=== PATIENT | male | born 1960 | race African-American/Black ===

== ENCOUNTER → 2020-04-25 | Outpatient (CLI) | payer MEDICARE, OTHER ==
[2020-04-25 08:57] LABS: HCT 38.7 % (39.0-53.0); HGB 12.3 gm/dL (13.0-17.5); MCH 28.9 pg (25.0-35.0); MCHC 31.7 g/dL (31.0-37.0); MCV 90.9 fL (80.0-100.0); Mean Platelet Volume 8.2; Platelet Count 191 k/uL (150-450); RBC 4.26 m/uL (4.30-5.90); RDW 13.8 % (11.5-15.5); WBC 6.2 k/uL (3.8-10.6)
[2020-04-25 17:59] LABS: African American GFR (CKD) 94.4 (60.0-200.0); Albumin 4.7 g/dL (3.80-4.90); Albumin/Globulin Ratio 1.68 (1.60-3.17); Anion Gap 10.6 mmol/L (4.00-12.00); Calcium 9.7 mg/dL (8.7-10.3); Carbon Dioxide 22.4 mmol/L (21.6-31.8); Chol/HDL Ratio 3.02; Globulin 2.8 g/dL (1.6-3.3); Non-African American GFR(CKD) 81.4 (60.0-200.0); Potassium 3.6 mmol/L (3.5-5.5); Total Bilirubin 0.5 mg/dL (0.3-1.2); Total Protein 7.5 g/dL (6.2-8.2)
[2020-04-25 18:29] LABS: Gliadin AB IgA, Deaminated NEGATIVE (NEGATIVE); Gliadin AB IgG, Deaminated NEGATIVE (NEGATIVE)
[2020-04-25 21:29] LABS: Hemoglobin A1C 5.5 % (4.0-6.0)
== END | disposition home or self-care (01) ==
LOC: LABWHC1 08:24
DX: Z00.00 Encounter for general adult medical examination without abnormal findings (principal); K52.9 Noninfective gastroenteritis and colitis, unspecified; L30.9 Dermatitis, unspecified; R20.2 Paresthesia of skin
CPT/HCPCS: 36415; 80053; 80061; 82607; 83036; 83516; 83921; 84443; 85027

== ENCOUNTER 2020-06-13 12:04 | Observation (INO) | payer MEDICARE ==
[2020-06-13] MEDS ORDERED: LIDOCAINE 1% INJ 10MG/ML (20 ML MDV) SQ ONE (12:36)
[2020-06-13] MEDS ORDERED: MORPHINE SULFATE 4 MG/ML SYRINGE IVP STA (12:37)
[2020-06-13 12:51] LABS: Basophils % (A) 0 %; Eosinophils # (A) 0.3 k/uL (0-0.7); Eosinophils % (A) 4 %; HCT 37.9 % (39.0-53.0); HGB 12.6 gm/dL (13.0-17.5); Lymphocytes # (A) 1.8 k/uL (1.0-4.8); Lymphocytes % (A) 24 %; MCH 30.8 pg (25.0-35.0); MCHC 33.2 g/dL (31.0-37.0); MCV 92.6 fL (80.0-100.0); Monocytes # (A) 0.4 k/uL (0-1.0); Monocytes % (A) 5 %; Neutrophils # (A) 4.9 k/uL (1.3-7.7); Neutrophils % (A) 65 %; Platelet Count 183 k/uL (150-450); RBC 4.09 m/uL (4.30-5.90); RDW 13.2 % (11.5-15.5); WBC 7.5 k/uL (3.8-10.6)
--- NOTE | 2020-06-13 13:00 | XR ---
EXAMINATION TYPE: XR knee complete LT DATE OF EXAM: 06/13/2020 COMPARISON: None HISTORY: Pain TECHNIQUE: Three-view left knee FINDINGS: No significant joint effusion is evident. Soft tissues are normal. Joint spaces are preserv ed. No acute fractures or dislocations are evident. Posterior superior patellar spur is noted. IMPRESSION: 1. No acute osseous abnormality. 2. Follow-up exams can be performed 7-10 days from acute trauma for continued pain.
[2020-06-13 13:03] LABS: ALT 83 U/L (4-49); AST 106 U/L (17-59); African American GFR (CKD) >90 (>60 ml/min/1.73 sqM); Albumin 4.5 g/dL (3.5-5.0); Alkaline Phosphatase 73 U/L (38-126); Anion Gap 8 mmol/L; Blood Urea Nitrogen 18 mg/dL (9-20); C Reactive Protein 11.9 mg/L (<10.0); Calcium 9.6 mg/dL (8.4-10.2); Carbon Dioxide 27 mmol/L (22-30); Chloride 102 mmol/L (98-107); Glucose 100 mg/dL (74-99); Non-African American GFR(CKD) 81 (>60 ml/min/1.73 sqM); Potassium 4.6 mmol/L (3.5-5.1); Sodium 137 mmol/L (137-145); Total Bilirubin 0.6 mg/dL (0.2-1.3); Total Protein 8.3 g/dL (6.3-8.2); Uric Acid 7.8 mg/dL (3.5-8.5)
--- NOTE | 2020-06-13 13:07 | ED ---
Extremity Problem HPI - General Chief complaint: Extremity Problem,Nontraumatic Stated complaint: Left leg pain Time Seen by Provider: 06/13/20 12:10 Source: patient Mode of arrival: wheelchair Limitations: no limitations - History of Present Illness Initial comments: 60-year-old male presents to the emergency department with reported left knee pain. Patient denies any recent trauma. States the pain has been going on for the past 3 days. It has become so painful that he is unable to bear weight. He has had some swelling to the knee as well as warmth. Denies any fevers or chills. No history of hardware from previous surgeries to the joint. No calf pain or swelling. DVT or PE. Denies any chest pain or shortness of breath. Patient does not have an orthopedic surgeon. No other alleviating, precipitating or modifying factors - Related Data Home Medications Medication Instructions Recorded Confirmed Carvedilol [Coreg] 25 mg PO BID 06/13/20 06/13/20 FLUoxetine HCL [PROzac] 20 mg PO DAILY 06/13/20 06/13/20 Lisinopril-Hctz 20-25 mg 1 tab PO DAILY 06/13/20 06/13/20 [Zestoretic 20-25] amLODIPine [Norvasc] 10 mg PO DAILY 06/13/20 06/13/20 Previous Rx's Medication Instructions Recorded Indomethacin [Indocin ER] 75 mg PO DAILY #14 cap 06/15/20 Allergies Allergy/AdvReac Type Severity Reaction Status Date / Time No Known Allergies Allergy Verified 06/13/20 13:27 Review of Systems ROS Statement: Those systems with pertinent positive or pertinent negative responses have been documented in the HPI. ROS Other: All systems not noted in ROS Statement are negative. Past Medical History Past Medical History: Hypertension History of Any Multi-Drug Resistant Organisms: None Reported Past Surgical History: Orthopedic Surgery Past Psychological History: No Psychological Hx Reported Smoking Status: Current some day smoker Past Alcohol Use History: Occasional Past Drug Use History: None Reported General Exam Limitations: no limitations General appearance: alert, in no apparent distress Respiratory exam: Present: normal lung sounds bilaterally. Absent: respiratory distress, wheezes, rales, rhonchi, stridor Cardiovascular Exam: Present: regular rate, normal rhythm, normal heart sounds. Absent: systolic murmur, diastolic murmur, rubs, gallop, clicks GI/Abdominal exam: Present: soft, normal bowel sounds. Absent: distended, tenderness, guarding, rebound, rigid Extremities exam: Present: joint swelling (left knee which is also warm to the touch. Mild overlying erythema. Patient unable to perform any active ROM or weight bearing due to significant pain. 2+ DP and PT pulses) Neurological exam: Present: alert, oriented X3, CN II-XII intact Course Vital Signs 06/13/20 06/13/20 06/13/20 12:09 16:25 16:30 Temperature 97.9 F Pulse Rate 72 74 71 Pulse Rate [ Pulse Oximetery ] Respiratory 18 20 18 Rate Blood Pressure 119/82 147/94 148/91 Blood Pressure [Right Arm] O2 Sat by Pulse 99 96 96 Oximetry 06/13/20 06/13/20 06/13/20 18:30 19:03 19:09 Temperature 98.3 F 98.2 F Pulse Rate 75 Pulse Rate [ 65 Pulse Oximetery ] Respiratory 20 17 Rate Blood Pressure 134/84 Blood Pressure 133/79 [Right Arm] O2 Sat by Pulse 99 98 Oximetry Medical Decision Making - Medical Decision Making Upon arrival the patient is placed in room 20. A thorough history and physical exam was performed. Because the patient's left knee joint was warm to the touch and did recommend laboratory studies and an x-ray. Laboratory studies do demonstrate an elevated C-reactive protein of 1.9. ESR is 62. Knee x-ray demonstrates no acute osseous abnormality. I did attempt to perform arthroc entesis of the patient's knee however I am unable to obtain any fluid. I did discuss results to Dr. Wetzel. He does agree to admit the patient. I will place him on Unasyn. Patient is also placed in a knee immobilizer. Treatment plan was discussed with the patient he does agree. Patient remained in stable condition awaiting a bed on the floor - Lab Data Result diagrams: 06/13/20 12:36 06/13/20 12:36 Lab Results 06/13/20 06/13/20 Range/Units 12:36 12:36 WBC 7.5 (3.8-10.6) k/uL RBC 4.09 L (4.30-5.90) m/uL Hgb 12.6 L (13.0-17.5) gm/dL Hct 37.9 L (39.0-53.0) % MCV 92.6 (80.0-100.0) fL MCH 30.8 (25.0-35.0) pg MCHC 33.2 (31.0-37.0) g/dL RDW 13.2 (11.5-15.5) % Plt Count 183 (150-450) k/uL Neutrophils % 65 % Lymphocytes % 24 % Monocytes % 5 % Eosinophils % 4 % Basophils % 0 % Neutrophils # 4.9 (1.3-7.7) k/uL Lymphocytes # 1.8 (1.0-4.8) k/uL Monocytes # 0.4 (0-1.0) k/uL Eosinophils # 0.3 (0-0.7) k/uL Basophils # 0.0 (0-0.2) k/uL ESR 62 H (0-15) mm/hr Sodium 137 (137-145) mmol/L Potassium 4.6 (3.5-5.1) mmol/L Chloride 102 (98-107) mmol/L Carbon Dioxide 27 (22-30) mmol/L Anion Gap 8 mmol/L BUN 18 (9-20) mg/dL Creatinine 1.00 (0.66-1.25) mg/dL Est GFR (CKD-EPI)AfAm >90 (>60 ml/min/1.73 sqM) Est GFR (CKD-EPI)NonAf 81 (>60 ml/min/1.73 sqM) Glucose 100 H (74-99) mg/dL Uric Acid 7.8 (3.5-8.5) mg/dL Calcium 9.6 (8.4-10.2) mg/dL Total Bilirubin 0.6 (0.2-1.3) mg/dL AST 106 H (17-59) U/L ALT 83 H (4-49) U/L Alkaline Phosphatase 73 (38-126) U/L C-Reactive Protein 11.9 H (<10.0) mg/L Total Protein 8.3 H (6.3-8.2) g/dL Albumin 4.5 (3.5-5.0) g/dL Disposition Clinical Impression: Left knee pain Disposition: ADMITTED IP TO THIS [facility] Condition: Good Is patient prescribed a controlled substance at d/c from ED?: No Decision to Admit Reason: Admit from EC Decision Date: 06/13/20 Decision Time: 17:47
[2020-06-13 13:46] LABS: Erythrocyte Sedimentation Rate 62 mm/hr (0-15)
[2020-06-13] MEDS ORDERED: AMPICILLIN-SULBACTAM 3 GM in SODIUM CHLORIDE 0.9% 100 ML IVPB STA (17:47)
[2020-06-13] MEDS ORDERED: NALOXONE 0.4 MG/ML 1 ML VIAL IV PRN (17:48)
[2020-06-13] MEDS: SODIUM CHLORIDE 0.9% 1,000 ML IV SCH (18:30)
[2020-06-13] MEDS: HYDROcodone/APAP 5-325MG 1 EACH TAB PO PRN ×2 (18:54→22:49)
[2020-06-13] MEDS: carvediloL 12.5 MG TAB PO SCH (20:36)
[2020-06-14] MEDS: HYDROcodone/APAP 5-325MG 1 EACH TAB PO PRN ×4 (02:47→19:16)
[2020-06-14] MEDS: carvediloL 12.5 MG TAB PO SCH ×2 (07:37→15:55)
[2020-06-14] MEDS: amLODIPine 10 MG TAB PO SCH (07:38)
[2020-06-14] MEDS: LISINOPRIL-HCTZ 20-25 MG 1 EACH TAB PO SCH (07:38)
[2020-06-14] MEDS: FLUoxetine HCL 20 MG CAP PO SCH (07:38)
[2020-06-14] MEDS ORDERED: LIDOCAINE 2% INJ 20 MG/ML (20 ML MDV) MISCELLANE STA (09:20)
--- NOTE | 2020-06-14 10:10 | P.HPOR ---
History of Present Illness H&P Date: 06/14/20 Chief Complaint: Left knee pain This is a 60-year-old male who presents to the emergency department with left knee pain for the past several days. He denies any injury or trauma. He states that he began having severe pain and swelling to the knee which was unrelieved with Tylenol. The patient denies history of sickle cell anemia. He states that he does have a strong family history of gout in his father and brother. He has not had problems with his left knee in the past. Past Medical History Past Medical History: Hypertension History of Any Multi-Drug Resistant Organisms: None Reported Past Surgical History: Orthopedic Surgery Past Psychological History: No Psychological Hx Reported Smoking Status: Current some day smoker Past Alcohol Use History: Occasional Past Drug Use History: None Reported Medications and Allergies Home Medications Medication Instructions Recorded Confirmed Type Carvedilol [Coreg] 25 mg PO BID 06/13/20 06/13/20 History FLUoxetine HCL [PROzac] 20 mg PO DAILY 06/13/20 06/13/20 History Lisinopril-Hctz 20-25 mg 1 tab PO DAILY 06/13/20 06/13/20 History [Zestoretic 20-25] amLODIPine [Norvasc] 10 mg PO DAILY 06/13/20 06/13/20 History Allergies Allergy/AdvReac Type Severity Reaction Status Date / Time No Known Allergies Allergy Verified 06/13/20 13:27 Physical Examination This is a pleasant 60-year-old male in no acute distress. He is alert and oriented 3. Exam of the lower extremities reveals trace knee effusion to the left knee. There is no erythema or ecchymosis. There is no appreciable increased warmth to the knee today. He is able to straight leg raise without difficulty. He has significant pain with attempted to flex the knee. I am unable to perform Kayla's test due to his inability to flex the knee. No obvious instability noted to the knee with Lockman and drawer tests. No obvious laxity to the MCL or LCL. Neurovascular status to the lower extremity is intact. Results X-rays of the left knee reveal no obvious bony abnormality. Minimal degenerative changes noted. No acute fracture noted. - Labs Labs: Abnormal Lab Results - Last 24 Hours (Table) 06/13/20 06/13/20 Range/Units 12:36 12:36 RBC 4.09 L (4.30-5.90) m/uL Hgb 12.6 L (13.0-17.5) gm/dL Hct 37.9 L (39.0-53.0) % ESR 62 H (0-15) mm/hr Glucose 100 H (74-99) mg/dL AST 106 H (17-59) U/L ALT 83 H (4-49) U/L C-Reactive Protein 11.9 H (<10.0) mg/L Total Protein 8.3 H (6.3-8.2) g/dL H & H 06/13/20 Range/Units 12:36 Hgb 12.6 L (13.0-17.5) gm/dL Hct 37.9 L (39.0-53.0) % Result Diagrams: 06/13/20 12:36 06/13/20 12:36 Assessment and Plan (1) Left knee pain Current Visit: Yes Status: Acute Code(s): M25.562 - PAIN IN LEFT KNEE SNOMED Code(s): 14433551 Plan: The clinical and x-ray findings are discussed with the patient. I did attempt to aspirate the knee obtaining only 1 mL of slightly blood-tinged joint fluid. The fluid is sent for culture and sensitivity. With his strong family history of gout, I discussed the patient that he may be having a gout flare. We will start him on Indocin today to see if it improves his pain. He may continue with a knee immobilizer for comfort.
[2020-06-14] MEDS: INDOMETHACIN 25 MG CAP PO SCH (11:03)
--- NOTE | 2020-06-14 15:25 | MR ---
EXAMINATION TYPE: MR knee LT wo con DATE OF EXAM: 06/14/2020 COMPARISON: Left knee x-ray from yesterday HISTORY: Knee pain, Left Anterior, Swelling. No Known Trauma TECHNIQUE: Multiplanar, multisequence imaging of the left knee is performed without IV contrast. FINDINGS: MEDIAL MENISCUS: Oblique signal posterior horn extends to inferior articular surface sagittal image 2 6. LATERAL MENISCUS: Anterior and posterior horns intact. CRUCIATE LIGAMENTS: The anterior and posterior cruciate ligaments are intact and unremarkable. COLLATERAL LIGAMENTS: The medial collateral ligament and lateral collateral ligament complex are inta ct and unremarkable. EXTENSOR MECHANISM: Visualized quadriceps and patellar tendons are intact. EFFUSION: Small to moderate size suprapatellar joint effusion. POPLITEAL CYST: No popliteal/koroma cyst. TRICOMPARTMENT SPACES: Mild to moderate tricompartment joint space loss without significant spurring CARTILAGE: Chondromalacia patella with thinning of articular cartilage along the posterior patellar p ole. No full-thickness cartilaginous loss is seen. BONE MARROW SIGNAL: No focal abnormal marrow signal is appreciated. OTHER: Moderate to severe focal subcutaneous edema laterally in the region of the fibular head with mild to moderate subcutaneous edema extending anteriorly and medially. IMPRESSION: 1. Oblique full-thickness tear posterior horn medial meniscus. 2. Mild to moderate tricompartment degenerative changes greatest patellofemoral compartment as detail ed above. 3. Small to moderate sized patellar joint effusion. 4. Focal moderate to severe subcutaneous edema region of the fibular head could reflect soft tissue c ontusion injury. No suspicious osseous edema.
[2020-06-14] MEDS: SODIUM CHLORIDE 0.9% 1,000 ML IV SCH (16:52)
[2020-06-15] MEDS: HYDROcodone/APAP 5-325MG 1 EACH TAB PO PRN ×2 (00:37→07:28)
[2020-06-15] MEDS: FLUoxetine HCL 20 MG CAP PO SCH (07:29)
[2020-06-15] MEDS: carvediloL 12.5 MG TAB PO SCH (07:29)
[2020-06-15] MEDS: LISINOPRIL-HCTZ 20-25 MG 1 EACH TAB PO SCH (07:29)
[2020-06-15] MEDS: INDOMETHACIN 25 MG CAP PO SCH (07:29)
[2020-06-15] MEDS: amLODIPine 10 MG TAB PO SCH (07:29)
[2020-06-15 07:31] VITALS: BP 152/86; PULSE 63; RESP 14; TEMP 97.9
[2020-06-15] MEDS ORDERED: methylPREDNISolone ACETATE 40 MG/ML 1 ML VIAL INTRAARTIC STA (08:05)
[2020-06-15] MEDS ORDERED: LIDOCAINE 2% INJ 20 MG/ML (20 ML MDV) SQ STA (08:06)
--- NOTE | 2020-06-15 08:42 | P.DS ---
Providers Date of admission: 06/13/20 17:48 Expected date of discharge: 06/15/20 Attending physician: Melvin Wetzel Primary care physician: Stated None - Discharge Diagnosis(es) (1) Left knee pain Current Visit: Yes Status: Acute (2) Acute meniscal tear of left knee Current Visit: Yes Status: Acute Hospital Course: This is a 60-year-old male who presents to the emergency department with left knee pain for the past several days. He denies any injury or trauma. He states that he began having severe pain and swelling to the knee which was unrelieved with Tylenol. The patient denies history of sickle cell anemia. He states that he does have a strong family history of gout in his father and brother. He has not had problems with his left knee in the past. His knee was aspirated on 06/14/2020 17 only 1 mL of clear joint fluid. Fluid was sent for culture which is pending. He has no sign of active infection. He was given a cortisone injection today prior to discharge. MRI revealed medial meniscal tear which appears to be chronic. He has significant patellofemoral arthritis. Minimal effusion. May be discharged to home today in good condition. Follow-up in one week. Patient Condition at Discharge: Good Plan - Discharge Summary Discharge Rx Participant: No New Discharge Prescriptions: New Indomethacin [Indocin ER] 75 mg PO DAILY #14 cap No Action Carvedilol [Coreg] 25 mg PO BID amLODIPine [Norvasc] 10 mg PO DAILY Lisinopril-Hctz 20-25 mg [Zestoretic 20-25] 1 tab PO DAILY FLUoxetine HCL [PROzac] 20 mg PO DAILY Discharge Medication List Carvedilol [Coreg] 25 mg PO BID 06/13/20 [History] FLUoxetine HCL [PROzac] 20 mg PO DAILY 06/13/20 [History] Lisinopril-Hctz 20-25 mg [Zestoretic 20-25] 1 tab PO DAILY 06/13/20 [History] amLODIPine [Norvasc] 10 mg PO DAILY 06/13/20 [History] Indomethacin [Indocin ER] 75 mg PO DAILY #14 cap 06/15/20 [Rx] Follow up Appointment(s)/Referral(s): None,Stated [Primary Care Provider] - 1-2 days Melvin Wetzel MD [STAFF PHYSICIAN] - 1 Week Activity/Diet/Wound Care/Special Instructions: Maintain knee immobilizer for comfort. Follow-up in one week. Discharge Disposition: HOME SELF-CARE
== END 2020-06-15 10:20 | disposition home or self-care (01) ==
LOC: EC 12:04 → 1SOBS 17:48
PROVIDERS: ADMIT Orthopaedic Surgery; ATTEND Orthopaedic Surgery
DX: M23.222 Derangement of posterior horn of medial meniscus due to old tear or injury, left knee (principal); M79.605 Pain in left leg; F17.200 Nicotine dependence, unspecified, uncomplicated; I10 Essential (primary) hypertension; M17.10 Unilateral primary osteoarthritis, unspecified knee; Z79.899 Other long term (current) drug therapy; Z82.69 Family history of other diseases of the musculoskeletal system and connective tissue
CPT/HCPCS: 96366; 20610; 96365; 96375; 99285; 29799; 36415; 80053; 85652; 84550; 85025; 86140; 87040; 87070; 87205; 73562; 73721; G0378 ×3; J2001 ×3; J2270; J1030; J0295